=== PATIENT | male | born 1955 | race Caucasian/White ===

== ENCOUNTER 2017-01-22 05:53 | Day surgery (SDC) | payer MEDICAID ==
[~2017-01-22] VITALS: Ht 167.6 cm; Wt 66.4 kg
[~2017-01-22 05:53] MED LIST: ASPI-556 PO; CARV6 PO; CLOP75 PO
[2017-01-22] MEDS ORDERED: SODIUM CHLORIDE 0.9% 1,000 ML IV ONE ×2 (06:06→06:30)
[2017-01-22] MEDS ORDERED: SERT100T12 PO (06:18)
[2017-01-22] MEDS ORDERED: ATOR20TA86 PO (06:18)
[2017-01-22] MEDS ORDERED: NAPR-58 PO (06:18)
[2017-01-22] MEDS ORDERED: MIDAZOLAM HCL 2 MG/2 ML VIAL ONE (07:31)
[2017-01-22] MEDS ORDERED: FentaNYL CITRATE-PF 100 MCG/2 ML VIAL ONE (07:32)
[2017-01-22] MEDS ORDERED: MethylPREDNISolone SOD SUCC 125 MG/2 ML VIAL IVP ONE (08:30)
[2017-01-22] MEDS ORDERED: MethylPREDNISolone SOD SUCC 125 MG/2 ML VIAL ONE (09:00)
[2017-01-22] MEDS ORDERED: LIDOCAINE HCL 2% 30 ML JELLY TP ONE (12:26)
[2017-01-22] MEDS ORDERED: BENZOCAINE 20% 50 MCG/SPRAY 57 GM TP ONE (12:26)
[2017-01-22] MEDS ORDERED: LIDOCAINE HCL 4% 50 ML SOLUTION TP ONE (12:26)
[2017-01-22] MEDS ORDERED: OXYGEN THERAPY IH SCH (20:00)
== END 2017-01-22 10:00 | disposition home or self-care (01) ==
LOC: SURGERY 05:53
PROVIDERS: ATTEND Internal Medicine Critical Care Medicine
DX: J38.4 Edema of larynx (principal); B37.0 Candidal stomatitis; J44.9 Chronic obstructive pulmonary disease, unspecified; M54.9 Dorsalgia, unspecified; Z79.01 Long term (current) use of anticoagulants; Z98.890 Other specified postprocedural states; Z95.5 Presence of coronary angioplasty implant and graft; Z86.79 Personal history of other diseases of the circulatory system
CPT/HCPCS: 31623; 31624; 71010; 87015 ×2; 87070; 87101; 87147; 87205; 87220; 87252; 88108; 88184; 88185; 88305; 88312; 94640; J2250; J2930; J3010; J7030